=== PATIENT | female | born 1975 | race Caucasian/White ===

== ENCOUNTER 2018-10-09 08:36 | Inpatient (IN) | payer MEDICARE, MEDICAID ==
[~2018-10-09] VITALS: Ht 172.7 cm; Wt 99.8 kg
[2018-10-09 09:22] LABS: CHLORIDE 101 mEq/L (98-107)
[2018-10-09 09:26] LABS: ETHANOL BLOOD < 10 mg/dL
[2018-10-09 09:30] LABS: BASOPHILS % 0.4 % (0.0-2.0); EOSINOPHILS % 0.5 % (0.0-5.0); HEMOGLOBIN. 13.7 g/dL (12.0-16.0); MEAN CORPUSCULAR HEMOGLOBIN 32.2 pg (28.0-32.0); MEAN CORPUSCULAR VOLUME 96.3 fL (81.0-99.0); MEAN PLATELET VOLUME 9.1 fl (7.4-10.4); MONOCYTES % 3.6 % (2.0-8.0); NEUTROPHILS % 87.5 % (40.0-76.0); PLATELET 302 x1000/uL (130-400); RED BLOOD CELL COUNT 4.26 mill/uL (4.2-5.4); RED CELL DISTRIBUTION WIDTH 14.1 % (11.6-14.6)
[2018-10-09 10:24] LABS: CLARITY URINE CLEAR (CLEAR); COLOR URINE YELLOW (YELLOW); KETONES URINE 2+ (NEGATIVE); LEUKOCYTE ESTERASE URINE NEGATIVE (NEGATIVE); NITRITE URINE NEGATIVE (NEGATIVE); OCCULT BLOOD URINE NEGATIVE (NEGATIVE); PH URINE 5.5 (4.5-8.0); PROTEIN URINE 1+ (NEGATIVE)
[2018-10-09] MEDS: SODIUM CHLORIDE 0.9% 500 ML IV NR ×2 (10:29→10:36)
[2018-10-09] MEDS ORDERED: VALPROATE SODIUM 500 MG in SODIUM CHLORIDE 0.9% 100 ML IV NR (10:30)
[2018-10-09 10:45] LABS: *AMPHETAMINES SCREEN URINE NEGATIVE (NEGATIVE)
[2018-10-09 10:46] LABS: *BARBITURATES SCREEN URINE NEGATIVE (NEGATIVE); *BENZODIAZEPINES SCREEN URINE NEGATIVE (NEGATIVE); *COCAINE SCREEN URINE NEGATIVE (NEGATIVE); CANNABINOID URINE SCREEN NEGATIVE (NEGATIVE); METHADONE URINE SCREEN NEGATIVE (NEGATIVE); OPIATES URINE SCREEN NEGATIVE (NEGATIVE); PHENCYCLIDINE URINE SCREEN NEGATIVE (NEGATIVE)
[2018-10-09] MEDS ORDERED: LORAZEPAM 2MG/ML CPJ ONE (11:05)
[2018-10-09] MEDS ORDERED: CLONIDINE 0.1MG TABLET PO PRN (12:15)
[2018-10-09] MEDS ORDERED: NA PHOS,M-B/NA PHOS,DI-BA ENEMA 118ML PR PRN (12:15)
[2018-10-09] MEDS ORDERED: DOCUSATE SODIUM 100MG CAPSULE PO PRN (12:15)
[2018-10-09] MEDS ORDERED: DIPHENHYDRAMINE 50MG/ML VIAL IV PRN (12:15)
[2018-10-09] MEDS ORDERED: KETOROLAC 15MG/ML VIAL IV PRN (12:15)
[2018-10-09] MEDS ORDERED: ACETAMINOPHEN 325MG TABLET PO PRN (12:15)
[2018-10-09] MEDS ORDERED: IPRATROPIUM/ALBUTEROL 0.5-3(2.5)MG/3ML NEB INH PRN (12:15)
[2018-10-09] MEDS ORDERED: MAGNESIUM/ALUMINUM HYDROXIDE/SIMETHICONE 30ML UDC PO PRN (12:15)
[2018-10-09] MEDS ORDERED: ONDANSETRON HCL 4MG/2ML INJ IV PRN (12:15)
[2018-10-09] MEDS: VALPROIC ACID 250MG CAPSULE PO SCH ×2 (16:51→17:41)
[2018-10-09 17:21] VITALS: BP 99/60
[2018-10-09] MEDS: ENOXAPARIN 30MG/0.3ML SYR SUBCUT SCH (17:41)
[2018-10-09] MEDS: HALOPERIDOL LACTATE 5MG/ML VIAL IM PRN (20:37)
[2018-10-09] MEDS ORDERED: LEVETIRACETAM 500MG PREMIX 100 ML IV SCH (21:00)
[2018-10-09] MEDS: FAMOTIDINE 20MG TABLET PO SCH (21:00)
[2018-10-09] MEDS: LEVETIRACETAM 500 MG in SODIUM CHLORIDE 0.9% 100 ML IV SCH (21:21)
[2018-10-09] MEDS ORDERED: CLOZ25TA2 MT (22:45)
[2018-10-09] MEDS ORDERED: CLOZ100T2 MT (22:45)
[2018-10-09] MEDS ORDERED: DIVA125T2 MT (22:45)
[2018-10-10] MEDS: ENOXAPARIN 30MG/0.3ML SYR SUBCUT SCH ×2 (06:00→18:00)
[2018-10-10] MEDS: VALPROIC ACID 250MG CAPSULE PO SCH ×4 (06:15→21:59)
[2018-10-10] MEDS: LORAZEPAM 2MG/ML CPJ IV PRN ×2 (08:24→18:01)
[2018-10-10] MEDS: HALOPERIDOL LACTATE 5MG/ML VIAL IM PRN (08:24)
[2018-10-10] MEDS: FAMOTIDINE 20MG TABLET PO SCH ×3 (08:24→21:48)
[2018-10-10] MEDS: LEVETIRACETAM 500 MG in SODIUM CHLORIDE 0.9% 100 ML IV SCH (09:59)
[2018-10-10] MEDS: LEVETIRACETAM 500MG TABLET PO SCH (21:48)
[2018-10-10] MEDS: ZOLPIDEM TARTRATE 5MG TABLET PO PRN ×2 (21:48→22:04)
[2018-10-11] MEDS: ENOXAPARIN 30MG/0.3ML SYR SUBCUT SCH ×2 (05:43→18:00)
[2018-10-11] MEDS: VALPROIC ACID 250MG CAPSULE PO SCH ×4 (05:43→21:05)
[2018-10-11 08:00] VITALS: BP 148/97
[2018-10-11] MEDS: LEVETIRACETAM 500MG TABLET PO SCH ×2 (09:00→21:00)
[2018-10-11] MEDS: FAMOTIDINE 20MG TABLET PO SCH ×2 (10:05→21:00)
[2018-10-11 12:00] VITALS: BP 116/65
[2018-10-11 16:00] VITALS: BP 112/71
[2018-10-11] MEDS ORDERED: CLOZ200T PO (17:30)
[2018-10-11] MEDS ORDERED: DIVA125T2 PO (17:31)
[2018-10-12] MEDS: VALPROIC ACID 250MG CAPSULE PO SCH ×3 (05:47→20:54)
[2018-10-12] MEDS: ENOXAPARIN 30MG/0.3ML SYR SUBCUT SCH ×2 (05:48→17:25)
[2018-10-12] MEDS: FAMOTIDINE 20MG TABLET PO SCH ×2 (09:00→20:54)
[2018-10-12] MEDS: LEVETIRACETAM 500MG TABLET PO SCH ×2 (09:00→20:54)
[2018-10-13] MEDS: VALPROIC ACID 250MG CAPSULE PO SCH ×3 (06:00→20:49)
[2018-10-13] MEDS: ENOXAPARIN 30MG/0.3ML SYR SUBCUT SCH ×2 (06:00→17:45)
[2018-10-13] MEDS: FAMOTIDINE 20MG TABLET PO SCH ×2 (09:17→20:48)
[2018-10-13] MEDS: LEVETIRACETAM 500MG TABLET PO SCH ×2 (09:17→20:48)
[2018-10-14] MEDS: ENOXAPARIN 30MG/0.3ML SYR SUBCUT SCH (06:00)
[2018-10-14] MEDS: VALPROIC ACID 250MG CAPSULE PO SCH (06:00)
[2018-10-14 08:00] VITALS: BP 114/62
[2018-10-14] MEDS: HALOPERIDOL LACTATE 5MG/ML VIAL IM PRN (08:42)
[2018-10-14] MEDS: FAMOTIDINE 20MG TABLET PO SCH (09:00)
[2018-10-14] MEDS: LEVETIRACETAM 500MG TABLET PO SCH (09:00)
[2018-10-14 13:24] VITALS: BP 114/62
== END 2018-10-14 14:45 | disposition short-term general hospital (02) | DRG 100 ==
LOC: ER 08:36 → 8WST 11:53 → SUPCPDRO 12:14 → ENRESERV 15:36 → 8WST 10-10 03:31
PROVIDERS: ADMIT Internal Medicine; ATTEND Internal Medicine
DX: G40.909 Epilepsy, unspecified, not intractable, without status epilepticus (principal); G92 Toxic encephalopathy; F20.9 Schizophrenia, unspecified; F19.10 Other psychoactive substance abuse, uncomplicated; Z71.51 Drug abuse counseling and surveillance of drug abuser
CPT/HCPCS: 36415; 80305; 80320; 83036; 93005; 93970; 99291; C1893; J1630; J1650; J1953; J2060; J3490; J7050; G0480